=== PATIENT | female | born 1985 | race Caucasian/White ===

== ENCOUNTER 2019-07-22 00:17 | Inpatient (IN) | payer OTHER ==
[2019-07-22] MEDS: Lactated Ringers 1,000 ML IV SCH ×2 (06:30→07:24)
[2019-07-22] MEDS ORDERED: Oxytocin/Normal Saline 60 UNIT/1,000 ML BAG ONE (07:00)
[2019-07-22] MEDS ORDERED: Sodium Chloride 0.9% 10 ML Syringe FLUSH PRN ×2 (07:11→08:00)
[2019-07-22] MEDS ORDERED: Tranexamic Acid 1,000 MG in Sodium Chloride 0.9% 100 ML IV PRN ×2 (07:11→08:00)
[2019-07-22] MEDS ORDERED: Lactated Ringers 1,000 ML IV SCH ×4 (07:15→09:15)
[2019-07-22] MEDS ORDERED: Citric Acid/Sodium Citrate Solution 30 ML Cup PO ONE ×2 (07:15→08:00)
[2019-07-22] MEDS ORDERED: Oxytocin/Normal Saline 30 UNIT/500 ML BAG IV SCH ×2 (07:15→08:00)
[2019-07-22] MEDS ORDERED: ceFAZolin 2 GM in Premix Bag 1 BAG IV ONE ×2 (07:15→08:00)
[2019-07-22] MEDS ORDERED: Methylergonovine 0.2 MG/1 ML Amp ONE (08:13)
[2019-07-22] MEDS ORDERED: ePHEDrine 50 MG/ML SDV IVPUSH PRN (09:06)
[2019-07-22] MEDS ORDERED: Ondansetron 4 MG/2 ML SDV IVPUSH PRN (09:06)
[2019-07-22] MEDS ORDERED: diphenhydrAMINE 50 MG/ML SDV IVPUSH PRN (09:06)
[2019-07-22] MEDS ORDERED: Carboprost Tromethamine 250 MCG/1 ML Amp IM PRN (09:06)
[2019-07-22] MEDS ORDERED: Naloxone 2 MG/2 ML Syringe IVPUSH PRN (09:06)
[2019-07-22] MEDS ORDERED: Misoprostol 400 MCG (4 X 100 MCG TAB) RECTAL PRN (09:06)
[2019-07-22] MEDS ORDERED: Acetaminophen/oxyCODONE 325-5 MG Tab PO PRN (09:06)
[2019-07-22] MEDS ORDERED: Acetaminophen 325 MG Tab PO PRN (09:06)
[2019-07-22] MEDS ORDERED: Metoclopramide 10 MG/2 ML SDV IVPUSH ONE (11:08)
--- NOTE | 2019-07-22 12:23 | OR ---
DATE: 07/22/2019 PREOPERATIVE DIAGNOSES: 1. 39 and 0/7 weeks' intrauterine by last menstrual period. 2. 3, para 2-0-0-2. 3. History of section x1. 4. History of hemorrhage. 5. Blood type A positive, rubella immune, GBS negative. 6. Anemia of , admission hemoglobin 10.5. POSTOPERATIVE DIAGNOSES: 1. 39 and 0/7 weeks' intrauterine by last menstrual period. 2. 3, now para 3-0-0-3. 3. History of section x2. 4. History of hemorrhage. 5. Blood type A positive, rubella immune, GBS negative. 6. Had large uterine window over 7 cm present over the prior scar complicating surgery. Recommend future delivery at 36 weeks. 7. Anemia of , admission hemoglobin 10.5. 8. Vacuum-assisted section to decrease potential uterine trauma SURGERY PERFORMED: Repeat low transverse section. SURGEON: Ashley Mina MD PROFESSOR OF ENVIRONMENTAL SCIENCE: Aspen Dalton MD ANESTHESIA: Spinal. BRIEF HISTORY: A 33-year-old female with the above-listed diagnoses, presents to the hospital for elective repeat section at term. No complications were anticipated. See admission history and physical for full details. overall was uncomplicated. There was a choroid plexus cyst, however, that resolved on followup ultrasound and the patient was doing well. Consent discussed with the patient and her indications, risks, benefits, and alternatives of repeat section for delivery, and discussed risk of bleeding to the point of requiring blood transfusion as well as its inherent risks, risk of injury to any internal organs or adjacent structures including but not limited to large blood vessels, nerves, veins, bowel, bladder, fallopian tubes, ovaries, uterus itself, even injury to the baby, any other potential organs or adjacent structures, potential that these complications could require transfer to a higher level of care for further management, and remote risk of . Their questions were answered and consent forms were signed and are in the chart. DETAILS: The patient was brought to the operating room and spinal anesthesia obtained. She was laid in dorsal supine position with leftward tilt. Abdomen prepped and drapes applied in the usual fashion. Skin incision was made at the prior Pfannenstiel location at 07:56 and carried down to the underlying fascia using a cautery and blunt finger dissection. The fascia incised in the midline bilaterally and fascial incision extended with cautery. The superior fascial edge grasped with Augusto's, tented up, and rectus muscles dissected off bluntly and with cautery. Inferior fascial edge treated in similar manner. Peritoneal cavity was entered with blunt finger dissection and uterus then inspected and noted to have a large uterine window. Gerardo retractor was placed and uterus inspected further. The window was approximately 7 cm in diameter made up only of the uterine peritoneal lining and amniotic sac. The baby could be seen through this. Dr. Dalton and I took care to discuss where the appropriate hysterotomy incision should be made. If we went through the window, there would be no inferior tissue to close the uterus with and we would be certainly getting into the bladder, so we elected to incise the uterus approximately about 1 cm above the upper edge of the uterine window and this was carried down carefully with scalpel, extended slightly using Antonio method and then as soon as enough of the baby's head was visible for the vacuum, a Kiwi vacuum was applied and with gentle traction and some concomitant fundal pressure, the baby's head was delivered followed by the remainder of the thereafter with minimal extension of the hysterotomy site. 's mouth and nose were bulb suctioned. The baby dried and stimulated. Three-vessel umbilical cord was doubly clamped, cut. Baby taken to the warmer for further evaluation. Cord blood sample was obtained and then placenta delivered by gentle cord traction and concomitant uterine massage. Trailing membranes removed with ring forceps. Hysterotomy site was carefully inspected on the maternal right-hand side. There was tissue inferior and superior to the hysterotomy site appropriate for closure. On the maternal left hand side, the extension unfortunately went down into the uterine window leaving minimal to no tissue on that side for appropriate repair. Hysterotomy was closed with a running lock suture of 0 Vicryl starting at the maternal left apex and trying to grasp some of the lower uterine segment inferior to the window and possibly even including a small amount of vaginal tissue in order to get a good purchase and this extended for about 3.5 cm before I met with normal lower uterine segment tissue and was able to close the remainder of the hysterotomy site appropriately. The incision was reinspected and there was a little bit of oozing and bleeding on the maternal left hand side, so we gently placed an imbricated stitch with 0 Vicryl across the entirety of the hysterotomy site, and at that point, it looked quite normal externally. When you palpated you could still feel that there was a definite deficit of tissue inferiorly because of the window. Remainder of the uterus was normal in appearance. Fallopian tube fimbriae were normal. Gerardo retractor was removed. Pericolic gutters were cleared of all clots and debris. Inferior liver edge and gallbladder were visualized and normal. The hysterotomy site was reinspected and remained hemostatic and this layer was irrigated. The fascia was then closed with a running suture of 0 looped PDS in the usual fashion. Subcutaneous tissue was then irrigated, cleared of any clots and debris and subcutaneous bleeders controlled with cautery. Skin was closed with a running subcuticular stitch of 4-0 Vicryl on a Layo needle. The patient tolerated procedures well. Baby was delivered at 08:07. Stop time for surgery was 08:56. ESTIMATED BLOOD LOSS: 600 mL. URINE OUTPUT: 200 mL, clear. FLUIDS: 1000 mL of crystalloids. ADDITIONAL MEDICATIONS: Methergine was given because she was having a little bit of oozing looking bleeding while we were closing the hysterotomy site and that was well controlled and we had good uterine tone. COMPLICATIONS: The large uterine window did pose a challenge to proper selection of hysterotomy site and then complicated closure with concern for inadequate tissue to sustain proper future until term. I did discuss with the patient and her , that they feel they are done with her childbearing and that their family is the appropriate size, so proceeding with a vasectomy or tubal ligation would be ideal. However, other forms of contraception could be considered such as IUDs, pills, etc. I did discuss with them that if there is an unplanned or unexpected in the future that I would recommend the physician review all of the operative reports and also make sure to plan for repeat section at 36 weeks' gestation. She should not labor with any future pregnancies and she should not be expected to carry until term. The patient and her 's questions were answered. [facility] /[id number] CORINNE
[2019-07-22] MEDS: Simethicone 80 MG Tab.Chew PO SCH ×3 (14:37→20:30)
[2019-07-22] MEDS: Ketorolac 30 MG/ML SDV IVPUSH SCH ×2 (14:37→20:27)
[2019-07-22] MEDS: Oseltamivir 75 MG Cap PO SCH (16:33)
[2019-07-22] MEDS: Docusate Sodium 100 MG Cap PO PRN (20:30)
[2019-07-23] MEDS: Ketorolac 30 MG/ML SDV IVPUSH SCH (02:19)
[2019-07-23] MEDS ORDERED: Ferrous Sulfate 325 MG Tab PO SCH (09:00)
[2019-07-23] MEDS: Prenatal Multivitamin with Calcium/Folic Acid/Iron Tab PO SCH (09:07)
[2019-07-23] MEDS: Docusate Sodium 100 MG Cap PO PRN ×2 (09:07→20:58)
[2019-07-23] MEDS: Simethicone 80 MG Tab.Chew PO SCH ×4 (09:07→20:58)
[2019-07-23] MEDS: Oseltamivir 75 MG Cap PO SCH (09:08)
[2019-07-23] MEDS: Acetaminophen/oxyCODONE 325-5 MG Tab PO PRN ×4 (09:11→22:43)
[2019-07-23] MEDS ORDERED: Oxytocin/Normal Saline 30 UNIT/500 ML BAG IV ONE (10:07)
--- NOTE | 2019-07-23 10:52 | PN ---
DATE: 07/23/2019 SUBJECTIVE: Postoperative day #1, patient doing well. Had a little bit of nausea and sweatiness yesterday but that seems to have resolved. Her middle daughter tested positive for influenza A, so we did start Brittany on a prophylactic Tamiflu, and she seems to be tolerating that well. Denies any chest pain or shortness of breath. Bleeding has been well controlled. She is nursing without any specific difficulties. Has the expected incisional tenderness, passing flatus, and voiding without difficulties. Has not yet had a bowel movement. No other problems or concerns reported. OBJECTIVE: Vital Signs: Temperature 98.3, pulse 82, blood pressure 99/48, respiratory rate of 16, and O2 saturations of 99% on room air. Heart: Regular, without obvious murmur. Lungs: Clear to auscultation bilaterally. Abdomen: Soft and nontender except near the incision site. Fundus is firm and below the umbilicus. Dressing is intact. It was replaced yesterday because it came off with coughing, but she did not have excessive bleeding. Extremities: No edema, erythema, or tenderness noted. LABORATORY DATA: Hemoglobin down to 8.5 from a previous 10.5, platelets stable at 223. ASSESSMENT: 1. Status post repeat section. 2. Large uterine window complicating repair of the section and the patient is recommended to have no further pregnancies or if she does get again to have repeat section planned at 36 weeks and most likely in a larger hospital. 3. Anemia of . 4. Anemia of blood loss. PLAN: Continue normal and postoperative cares. Anticipating discharge home on day #3. Otherwise, routine care. [facility] /[id number] MTDCande
[2019-07-23] MEDS: Ferrous Sulfate 325 MG Tab PO SCH (18:19)
[2019-07-23] MEDS: Ibuprofen 800 MG Tab PO PRN (20:59)
[2019-07-24] MEDS: Acetaminophen/oxyCODONE 325-5 MG Tab PO PRN ×5 (02:45→21:28)
[2019-07-24] MEDS: Ibuprofen 800 MG Tab PO PRN ×3 (04:19→21:27)
[2019-07-24] MEDS: Prenatal Multivitamin with Calcium/Folic Acid/Iron Tab PO SCH (08:23)
[2019-07-24] MEDS: Simethicone 80 MG Tab.Chew PO SCH ×4 (08:23→21:27)
[2019-07-24] MEDS: Docusate Sodium 100 MG Cap PO PRN ×2 (08:23→21:27)
[2019-07-24] MEDS: Oseltamivir 75 MG Cap PO SCH (08:23)
[2019-07-24] MEDS: Ferrous Sulfate 325 MG Tab PO SCH ×2 (08:23→17:37)
[2019-07-24] MEDS ORDERED: Ondansetron 4 MG/2 ML SDV IV ONE (11:59)
[2019-07-24] MEDS ORDERED: Methylergonovine 0.2 MG/1 ML Amp IM ONE (11:59)
[2019-07-24] MEDS ORDERED: Morphine PF 1 MG/ML Amp ONE (11:59)
[2019-07-24] MEDS ORDERED: ePHEDrine 50 MG/ML SDV IV ONE (11:59)
[2019-07-24] MEDS ORDERED: Ketorolac 30 MG/ML SDV IVPUSH ONE (11:59)
[2019-07-24] MEDS ORDERED: Dexamethasone 4 MG/ML SDV IV ONE (11:59)
--- NOTE | 2019-07-24 12:16 | PN ---
DATE: 07/24/2019 SUBJECTIVE: Postoperative day #2. The patient is doing well. Ambulating and tolerating regular diet. No chest pain or shortness of breath. Bleeding has been well controlled. Incisional pain is well controlled. Voiding without difficulty. Passing flatus, not yet had a bowel movement. Nursing is going well, but she is getting some sore nipples. Otherwise, no complaints. OBJECTIVE: General: Pleasant, well-appearing 33-year-old female. Vital Signs: Temperature is 98.7, pulse 80, blood pressure 113/56, respiratory rate of 16, O2 saturations 99% on room air. Heart: Regular without murmur. Lungs: Clear to auscultation bilaterally. Abdomen: Soft, nontender. Positive bowel sounds throughout. Incision site is clean, dry, and intact. Steri-Strips are in place. Extremities: No edema, erythema, or tenderness noted. ASSESSMENT: 1. Status post repeat section. 2. Anemia of of and acute blood loss. 3. her . PLAN: Continue normal postoperative cares. Anticipate discharge home tomorrow. [facility] /[id number]
[2019-07-25] MEDS: Acetaminophen/oxyCODONE 325-5 MG Tab PO PRN ×3 (01:36→09:20)
[2019-07-25] MEDS: Ibuprofen 800 MG Tab PO PRN (05:18)
[2019-07-25 08:44] VITALS: BP 116/69; PULSE 80
[2019-07-25] MEDS: Simethicone 80 MG Tab.Chew PO SCH (09:19)
[2019-07-25] MEDS: Ferrous Sulfate 325 MG Tab PO SCH (09:20)
[2019-07-25] MEDS: Oseltamivir 75 MG Cap PO SCH (09:20)
[2019-07-25] MEDS: Prenatal Multivitamin with Calcium/Folic Acid/Iron Tab PO SCH (09:20)
--- NOTE | 2019-07-25 14:43 | DISCH ---
ADMITTING DIAGNOSES: 1. 39-0/7 weeks' intrauterine . 2. 3, para 2-0-0-2. 3. History of section x1. 4. History of hemorrhage. 5. Blood type A positive, rubella immune, and group B strep negative. 6. Anemia of . DISCHARGE DIAGNOSES: 1. 39-0/7 weeks' intrauterine . 2. 3, now para 3003. 3. History of section x1. 4. History of hemorrhage, prior . 5. Blood type A positive, rubella immune, and group B strep negative. 6. Status post repeat section with large uterine window. Recommend next delivery at 36 weeks' gestation via if she gets again. 7. Anemia of acute blood loss and . 8. Influenza exposure to her daughter prior to admission to the hospital and daughter was not diagnosed until after she delivered. BRIEF HISTORY: This 33-year-old female was brought into the hospital for elective section at term with one prior because of maternal bleeding. She did well through the operation and operative report should be reviewed. It was noted that she had a very large uterine window present that did take great care and caution to try to avoid with surgery, but then also additional care in order to repair it to bring as much tissue together as possible. Other than that, surgery was uncomplicated and estimated blood loss was only around 600 mL. She has done well since time of surgery, ambulating, tolerating regular diet, passing flatus, not yet had a bowel movement, but denies any symptoms of abdominal pain or constipation. She is voiding without difficulties. and that is going well. Denies any chest pain, shortness of breath, or anemia symptoms. Her incisional pain has been well controlled. She has not had any personal symptoms of influenza. The children seemed healthy when she came into the hospital, but later in the morning, on day of delivery, her younger daughter had febrile illness and was diagnosed with influenza A, therefore prophylaxis initiated for Brittany in the hospital. PHYSICAL EXAMINATION: General: Discharge condition is good. The patient is meeting discharge criteria as listed above. Vital Signs: Temperature 98.0, pulse 80, blood pressure 116/69, respiratory rate of 18, and O2 saturations 99% on room air. Heart: Regular without murmur. Lungs: Clear to auscultation bilaterally. Abdomen: Soft and nontender. Positive bowel sounds. Fundus firm and below the umbilicus. Incision site is clean, dry, and intact. Extremities: No edema, erythema, or tenderness noted. LABORATORY DATA: Admission hemoglobin of 10.5 and discharge of 8.5. Platelets on admission 224 and discharge 223. DISPOSITION: Home with family. DISCHARGE MEDICATIONS: 1. Iron 325 mg twice daily. 2. Colace 100 mg twice daily as needed for constipation. 3. Percocet 5/325 one to two tablets every 4 to 6 hours as needed for pain. 4. Ibuprofen 800 mg every 8 hours as needed for pain. 5. Tamiflu 75 mg daily to complete a 10-day course. DISCHARGE INSTRUCTIONS: Routine instructions given for a post- mother as well as additional instructions to monitor for signs and symptoms of influenza. Her daughter will be kept with the grandparents until she is well recovered from her illness so as to decrease risk of getting the baby infected. The patient's questions have been answered. [facility] /[id number] MTDD
== END 2019-07-25 09:30 | disposition home or self-care (01) | DRG 787 ==
LOC: OBSVTOIN 00:17 → DL.OB 00:17 → UNDOADMOB 00:17 → INTOOBSV 00:17 → DL.OB 05:55 → INTOOBSV 05:55 → UNDOADMOB 05:55 → OBSVTOIN 05:55 → DL.OB 08:07
PROVIDERS: ADMIT Family Medicine; ATTEND Family Medicine
PROC: 10D00Z1 Extraction of Products of Conception, Low, Open Approach (ICD-10-PCS; principal; 2019-07-22)
DX: O99.02 Anemia complicating childbirth (principal); D62 Acute posthemorrhagic anemia; Z3A.39 39 weeks gestation of pregnancy; Z37.0 Single live birth
CPT/HCPCS: 36415; 59025; 85025; 85027; 86850; 86900; 86901; A9270-GY; J0690; J1100; J1885; J2210; J2274; J2405; J2590; J2765; J7120

== ENCOUNTER 2020-01-22 07:31 | Day surgery (SDC) | payer OTHER ==
[~2020-01-22 07:31] MED LIST: Lactated Ringers 1,000 ML IV SCH
[2020-01-22] MEDS ORDERED: Midazolam 1 MG/ML 2 ML SDV IV ONE (07:32)
[2020-01-22] MEDS ORDERED: Dexamethasone 4 MG/ML SDV IV ONE (07:32)
[2020-01-22] MEDS ORDERED: Propofol 200 MG/20 ML SDV IV ONE (07:32)
[2020-01-22] MEDS ORDERED: Rocuronium 100 MG/10 ML MDV IV ONE (07:32)
[2020-01-22] MEDS ORDERED: Lidocaine 2% 20 ML MDV INJECT ONE (07:32)
[2020-01-22] MEDS ORDERED: fentaNYL 100 MCG/2 ML SDV IV ONE (07:32)
[2020-01-22] MEDS ORDERED: Lidocaine 1% with EPINEPHrine 1:100,000 20 ML MDV INJECT ONE (07:32)
[2020-01-22] MEDS ORDERED: Ondansetron 4 MG/2 ML SDV IV ONE (07:32)
[2020-01-22] MEDS ORDERED: Succinylcholine 200 MG/10 ML MDV IV ONE (07:32)
[2020-01-22] MEDS ORDERED: Lidocaine 1% with EPINEPHrine 1:100,000 20 ML MDV ONE (08:57)
[2020-01-22] MEDS ORDERED: Lidocaine 1% with EPINEPHrine 1:100,000 30 ML MDV INJECT ONE ×2 (09:48→09:55)
[2020-01-22 13:38] VITALS: BP 101/56; PULSE 73
--- NOTE | 2020-01-22 16:35 | OR ---
DATE: 01/22/2020 PREOPERATIVE DIAGNOSIS: Umbilical hernia. POSTOPERATIVE DIAGNOSIS: Umbilical hernia. PROCEDURE: Open umbilical hernia repair. ANESTHESIA: General. ESTIMATED BLOOD LOSS: Minimal. SPECIMEN: Hernia sac. INDICATION FOR PROCEDURE: This 34-year-old female has a moderate-sized umbilical hernia. PROCEDURE IN DETAIL: After adequate preparation, a transverse and infraumbilical incision was made. This was carried down to the hernia sac which was dissected free from the subcutaneous tissue and overlying umbilical skin. Hernia sac was then opened and the contents of the hernia were reduced back into the abdomen, which contained omentum only. The wound was closed in a longitudinal fashion using interrupted 0 Prolene sutures. Vicryl was used for the subcutaneous tissue and Monocryl for the skin. [facility] /[id number]
== END 2020-01-22 11:48 | disposition home or self-care (01) ==
LOC: DL.SDS 07:31
PROVIDERS: ATTEND Surgery
DX: K42.9 Umbilical hernia without obstruction or gangrene (principal); J45.909 Unspecified asthma, uncomplicated; E66.9 Obesity, unspecified; Z11.59 Encounter for screening for other viral diseases; Z68.26 Body mass index [BMI] 26.0-26.9, adult
CPT/HCPCS: 00750; 49585; 81025; J0330; J1100; J2001; J2250; J2405; J2704; J3010; J7120; U0002

== ENCOUNTER 2021-12-21 00:20 | Emergency (ER) | payer BC, OTHER ==
[2021-12-21] MEDS ORDERED: Sodium Chloride 0.9% 10 ML Syringe FLUSH PRN (00:47)
[2021-12-21] MEDS ORDERED: HYDROmorphone 0.5 MG/0.5 ML Syringe IVPUSH ONE (00:49)
[2021-12-21] MEDS ORDERED: Sodium Chloride 0.9% 1,000 ML IV ONE (00:49)
[2021-12-21] MEDS ORDERED: Ondansetron 4 MG/2 ML SDV IVPUSH ONE (00:50)
[2021-12-21 00:52] VITALS: BP 123/76; PULSE 70
[2021-12-21 01:44] LABS: ANION GAP 15.3 mEq/L (7-13); CHLORIDE,CL 106 mmol/L (98-107); SODIUM,NA 141 mmol/L (136-145)
[2021-12-21 02:00] LABS: ESTIMATED GFR 87 mL/min (>=60)
[2021-12-21] MEDS ORDERED: Iopamidol 612 MG/ML 100 ML Bottle IVPUSH ONE (02:16)
[2021-12-21] MEDS ORDERED: Lactulose Soln 10 GM/15 ML 30 ML UD Cup PO ONE (04:57)
== END 2021-12-21 05:07 | disposition home or self-care (01) ==
LOC: DL.ED 00:20
DX: K59.00 Constipation, unspecified (principal); Z20.822 Contact with and (suspected) exposure to COVID-19
CPT/HCPCS: 36415; 74177; 80053; 81001; 81025; 83605; 83690; 83735; 85025; 86140; 87040; 87635; 96374; 96375; 99284; A9270; J1170; J2405; J3490; J7030; Q9967; U0002